=== PATIENT | male | born 1965 | race Caucasian/White ===

== ENCOUNTER 2018-04-28 15:12 | Emergency (ER) | payer MEDICAID ==
[~2018-04-28] VITALS: Ht 175.3 cm; Wt 81.8 kg
[~2018-04-28 15:12] MED LIST: CLOT15CR9 TOP; HYDR-4383 PO; IBUP-1986 PO
[2018-04-28 15:27] VITALS: BP 115/73
[2018-04-28] MEDS ORDERED: DOXY100C43 PO (16:01)
== END 2018-04-28 16:15 | disposition home or self-care (01) ==
LOC: ER 15:12
DX: R05 Cough (principal); F17.200 Nicotine dependence, unspecified, uncomplicated; Z56.0 Unemployment, unspecified
CPT/HCPCS: 71046; 99283

== ENCOUNTER 2019-04-01 00:36 | Emergency (ER) | payer MEDICAID ==
[~2019-04-01] VITALS: Ht 175.3 cm; Wt 79.5 kg
[2019-04-01 01:14] LABS: CLARITY,URINE CLOUDY (Clear); GLUCOSE, URINE NEGATIVE (Neg); KETONES,URINE NEGATIVE (Neg); LEUKOCYTE ESTERASE ,URINE LARGE (Neg); NITRITES, URINE NEGATIVE (Neg); OCCULT BLOOD,URINE MODERATE (Neg); PROTEIN,URINE 30 mg/dl (Neg)
--- NOTE | 2019-04-01 01:19 | NUR ---
Post void bladder scan 158 cc. Pt voided 50 cc prior.
[2019-04-01 01:21] LABS: COLOR,URINE DARK YELLOW (Yellow); UA COLLECTION TYPE CLN CATCH MIDSTREAM
[2019-04-01 01:24] LABS: BACTERIA,URINE 1+ /HPF (Neg); MUCUS STRANDS MANY /LPF (Neg); SQUAMOUS EPITHELIAL CELL,UR FEW /LPF (FEW); WBC,URINE TNTC /HPF (0-4)
[2019-04-01] MEDS ORDERED: CEPH-572 PO (01:33)
[2019-04-01] MEDS ORDERED: cephalexin 250mg capsule PO ONE (01:35)
[2019-04-01 02:10] VITALS: BP 142/86
[2019-04-02] MEDS ORDERED: PHEN-716 PO (16:17)
--- NOTE | 2019-04-04 09:35 | NUR ---
called and left a message that we need to change his antibiotic. it needs to be changed from keflex, to macrobid. need a pharmacy to to call in medications.
--- NOTE | 2019-04-04 09:42 | NUR ---
pt. called back. i let him know that he had MRSA in his urine and the keflex we sent him home on is not going to work for him. pt. still having symtoms. wants me to call in new antibiotic at [facility] [address]
--- NOTE | 2019-04-04 10:02 | NUR ---
called rx into [facility] [address] talked to koby the pharmacist for macrobid 100mg po bid x 7 days
== END 2019-04-01 02:12 | disposition home or self-care (01) ==
LOC: ER 00:37
DX: N40.1 Benign prostatic hyperplasia with lower urinary tract symptoms (principal); F10.99 Alcohol use, unspecified with unspecified alcohol-induced disorder; Z60.2 Problems related to living alone; Z56.0 Unemployment, unspecified; Z79.899 Other long term (current) drug therapy; Y90.9 Presence of alcohol in blood, level not specified
CPT/HCPCS: 81001; 87077; 87088; 87186; 99283; 99284

== ENCOUNTER 2019-04-02 14:35 | Emergency (ER) | payer MEDICAID ==
[~2019-04-02] VITALS: Ht 175.3 cm; Wt 76.9 kg
[~2019-04-02 14:35] MED LIST changes: +CEPH-572 PO
[2019-04-02 14:39] VITALS: BP 147/69
[2019-04-02 16:03] LABS: CLARITY,URINE TURBID (Clear); COLOR,URINE YELLOW (Yellow); GLUCOSE, URINE NEGATIVE (Neg); KETONES,URINE NEGATIVE (Neg); LEUKOCYTE ESTERASE ,URINE LARGE (Neg); NITRITES, URINE NEGATIVE (Neg); OCCULT BLOOD,URINE LARGE (Neg); PROTEIN,URINE 100 mg/dl (Neg)
[2019-04-02 16:04] LABS: UA COLLECTION TYPE VOIDED
[2019-04-02] MEDS ORDERED: CefTRIAXone 1000mg IM Kit (w/lidocaine diluent) IM STA (16:12)
[2019-04-02] MEDS ORDERED: phenazopyridine 100mg tablet PO STA (16:14)
[2019-04-02 16:17] LABS: HYALINE CASTS 0-3 /LPF (NEGATIVE); MUCUS STRANDS MANY /LPF (Neg); TRANSITIONAL EPI CELLS,URINE FEW /HPF
[2019-04-02] MEDS ORDERED: PHEN-716 PO (16:17)
[2019-04-02 16:18] LABS: WBC CLUMPS,URINE FEW /HPF (NEGATIVE); WBC,URINE TNTC /HPF (0-4)
[2019-04-02 16:19] LABS: BACTERIA,URINE FEW /HPF (Neg); SQUAMOUS EPITHELIAL CELL,UR FEW /LPF (FEW)
[2019-04-02] MEDS ORDERED: ibuprofen tablet 400 MG TABLET PO STA (16:31)
[2019-04-02] MEDS ORDERED: ibuprofen 200mg tablet PO STA (16:34)
== END 2019-04-02 17:08 | disposition home or self-care (01) ==
LOC: ER 14:36
DX: N39.0 Urinary tract infection, site not specified (principal); F10.99 Alcohol use, unspecified with unspecified alcohol-induced disorder; Z60.2 Problems related to living alone; Z56.0 Unemployment, unspecified; Y90.9 Presence of alcohol in blood, level not specified; Z79.899 Other long term (current) drug therapy
CPT/HCPCS: 81001; 87077; 87088; 87186; 96372; 99284; J0696

== ENCOUNTER 2019-04-06 00:47 | Emergency (ER) | payer MEDICAID ==
[~2019-04-06] VITALS: Ht 175.3 cm; Wt 79.5 kg
[~2019-04-06 00:47] MED LIST changes: +PHEN-716 PO
[2019-04-06] MEDS ORDERED: sulfamethoxazole/trimethoprim DS (800/160mg) tablet PO ONE (01:00)
[2019-04-06 01:39] VITALS: BP 136/78
[2019-04-06] MEDS ORDERED: SULF1TAB49 PO (02:03)
[2019-04-06 02:08] LABS: CLARITY,URINE CLOUDY (Clear); COLOR,URINE YELLOW (Yellow); GLUCOSE, URINE NEGATIVE (Neg); KETONES,URINE NEGATIVE (Neg); LEUKOCYTE ESTERASE ,URINE LARGE (Neg); OCCULT BLOOD,URINE LARGE (Neg); PROTEIN,URINE 100 mg/dl (Neg)
[2019-04-06 02:13] LABS: NITRITES, URINE NEGATIVE (Neg); UA COLLECTION TYPE CLN CATCH MIDSTREAM
[2019-04-06 02:14] LABS: BACTERIA,URINE FEW /HPF (Neg); SQUAMOUS EPITHELIAL CELL,UR FEW /LPF (FEW); WBC CLUMPS,URINE FEW /HPF (NEGATIVE); WBC,URINE TNTC /HPF (0-4)
== END 2019-04-06 02:30 | disposition home or self-care (01) ==
LOC: ER 00:48
DX: N39.0 Urinary tract infection, site not specified (principal); F12.90 Cannabis use, unspecified, uncomplicated; F15.90 Other stimulant use, unspecified, uncomplicated; F10.99 Alcohol use, unspecified with unspecified alcohol-induced disorder; Z60.2 Problems related to living alone; Z56.0 Unemployment, unspecified; Z79.899 Other long term (current) drug therapy; Y90.9 Presence of alcohol in blood, level not specified
CPT/HCPCS: 81001; 87077; 87088; 87186; 99283

== ENCOUNTER 2020-01-05 11:11 | Emergency (ER) | payer MEDICAID ==
[~2020-01-05] VITALS: Ht 175.3 cm; Wt 75.5 kg
[~2020-01-05 11:11] MED LIST changes: -CEPH-572 PO
[2020-01-05 11:43] VITALS: BP 133/73
[2020-01-05] MEDS ORDERED: LACT1CAP65 PO (12:49)
[2020-01-05] MEDS ORDERED: SULF1TAB49 PO (12:49)
[2020-01-05] MEDS ORDERED: CEPH500C5 PO (12:49)
== END 2020-01-05 13:47 | disposition home or self-care (01) ==
LOC: ER 11:12
DX: L03.011 Cellulitis of right finger (principal); F17.210 Nicotine dependence, cigarettes, uncomplicated; F12.10 Cannabis abuse, uncomplicated; F15.10 Other stimulant abuse, uncomplicated; Z56.0 Unemployment, unspecified; Z79.899 Other long term (current) drug therapy
CPT/HCPCS: 99283

== ENCOUNTER 2020-01-07 17:50 | Inpatient (IN) | payer MEDICAID ==
[~2020-01-07] VITALS: Ht 175.3 cm; Wt 74.0 kg
[~2020-01-07 17:50] MED LIST changes: +CEPH500C5 PO; +LACT1CAP65 PO; +SULF1TAB49 PO
[2020-01-07] MEDS ORDERED: vancomycin/NS 1 GM ADD-VANTAGE 250 ML IV ONE (19:20)
[2020-01-07] MEDS ORDERED: piperacillin/tazo 3.375gm/50ml 50 ML IV ONE (19:20)
[2020-01-07] MEDS ORDERED: normal saline 1000ML IV soln IV ONE (19:20)
[2020-01-07] MEDS ORDERED: ondansetron/PF 4mg/2ml inj IV ONE (19:25)
[2020-01-07] MEDS ORDERED: LIDOcaine/PRILOcaine 5gm cream TP ONE (19:35)
[2020-01-07 19:56] LABS: BASOPHILS # (AUTO) 0.2 X10'3 (0-0.2); BASOPHILS % (AUTO) 1.4 % (0-1); EOSINOPHILS # (AUTO) 0.2 X10'3 (0-0.9); EOSINOPHILS % (AUTO) 1.7 % (0-6); HEMOGLOBIN 15.4 g/dl (14.0-17.9); LYMPHOCYTES # (AUTO) 2.9 X10'3 (1.1-4.8); LYMPHOCYTES % (AUTO) 25.2 % (21-51); MEAN CORPUSCULAR HEMOGLOBIN 29.2 PG (27.0-31.0); MEAN CORPUSCULAR HGB CONC 33.4 g/dL (33.0-36.5); MEAN CORPUSCULAR VOLUME 87.3 FL (78-98); MEAN PLATELET VOLUME 7.4 FL (7.4-10.4); MONOCYTES # (AUTO) 1.1 X10'3 (0-0.9); MONOCYTES % (AUTO) 9.1 % (2-12); NEUTROPHILS # (AUTO) 7.3 X10'3 (1.8-7.7); NEUTROPHILS % (AUTO) 62.6 % (42-75); PLATELET COUNT 387 X10'3 (140-440); RED BLOOD COUNT 5.26 X10'6 (4.70-6.10); RED CELL DISTRIBUTION WIDTH 13.2 % (11.5-14.5); WHITE BLOOD COUNT 11.6 X10'3 (4.5-11.0)
[2020-01-07 20:12] LABS: ALANINE AMINOTRANSFERASE 24 U/L (12-78); ALBUMIN 3.3 G/DL (3.4-5.0); ALBUMIN/GLOBULIN RATIO 0.6 (1.1-1.5); ALKALINE PHOSPHATASE 93 IU/L (46-116); ANION GAP 5 (8-16); ASPARTATE AMINO TRANSFERASE 14 U/L (10-37); BILIRUBIN,TOTAL 0.4 MG/DL (0.1-1.0); BLOOD UREA NITROGEN 13 MG/DL (7-18); CALCIUM 9.6 MG/DL (8.5-10.1); CHLORIDE 100 MMOL/L (99-107); GLUCOSE 92 MG/DL (70-104); MAGNESIUM 2.2 MG/DL (1.5-2.4); POTASSIUM 4.2 MMOL/L (3.5-5.1); SODIUM 135 MMOL/L (135-145); TOTAL CARBON DIOXIDE 30.3 MMOL/L (24-32); TOTAL PROTEIN 8.5 G/DL (6.4-8.2); eGFR 57 ML/MIN
--- NOTE | 2020-01-07 21:23 | NUR ---
pt amb with steady gait to room 6, 2nd liter NS infusing w/o, pt amb to restroom
--- NOTE | 2020-01-07 21:43 | NUR ---
PT GIVEN SANDWICH, APPLESAUCE, AND JUICE UPON REQUEST
[2020-01-07] MEDS ORDERED: NO HOME MEDS (21:46)
[2020-01-07 21:48] LABS: CLARITY,URINE CLEAR (Clear); COLOR,URINE YELLOW (Yellow); GLUCOSE, URINE NEGATIVE (Neg); KETONES,URINE NEGATIVE (Neg); LEUKOCYTE ESTERASE ,URINE NEGATIVE (Neg); NITRITES, URINE NEGATIVE (Neg); OCCULT BLOOD,URINE TRACE-INTACT (Neg); PROTEIN,URINE NEGATIVE (Neg); UROBILINOGEN,URINE 0.2 E.U/dL (0.2-1.0)
[2020-01-07] MEDS ORDERED: magnesium hydroxide 30ml (MOM) UD suspension PO PRN (21:50)
[2020-01-07] MEDS ORDERED: morphine 2 MG/ML inj. syringe IV PRN ×2 (21:50)
[2020-01-07] MEDS ORDERED: ondansetron/PF 4mg/2ml inj IV PRN (21:50)
[2020-01-07] MEDS ORDERED: mag hydrox/Alum hydrox/simeth 30ml oral suspension PO PRN (21:50)
[2020-01-07] MEDS ORDERED: acetaminophen 325mg tablet PO PRN (21:50)
[2020-01-07] MEDS: normal saline 1000ml 1,000 ML IV SCH (21:50)
[2020-01-07] MEDS ORDERED: potassium CL 10mEq/100ml bag 100 ML IV PRN ×2 (21:50)
[2020-01-07] MEDS ORDERED: HYDROcodone/acetaminophen 5mg/325mg tablet PO PRN (21:50)
[2020-01-07] MEDS ORDERED: potassium Cl 20 mEq SR tablet PO PRN ×2 (21:50)
[2020-01-07] MEDS ORDERED: HYDROcodone/acetaminophen 10/325mg tab PO PRN (21:50)
[2020-01-07 21:51] LABS: UA COLLECTION TYPE CLN CATCH MIDSTREAM
[2020-01-07 21:58] LABS: SQUAMOUS EPITHELIAL CELL,UR FEW /LPF (FEW)
[2020-01-07 21:59] LABS: BACTERIA,URINE FEW /HPF (Neg); MUCUS STRANDS MODERATE /LPF (Neg); RBC,URINE 0-2 /HPF (0-2); WBC,URINE 0-4 /HPF (0-4)
[2020-01-08] MEDS: piperacillin/tazo 3.375gm/50ml 50 ML IV SCH ×2 (00:11→11:19)
[2020-01-08 06:06] LABS: BASOPHILS # (AUTO) 0.1 X10'3 (0-0.2); BASOPHILS % (AUTO) 0.7 % (0-1); EOSINOPHILS # (AUTO) 0.2 X10'3 (0-0.9); EOSINOPHILS % (AUTO) 1.9 % (0-6); HEMATOCRIT 40.9 % (42.0-52.0); LYMPHOCYTES # (AUTO) 2.2 X10'3 (1.1-4.8); LYMPHOCYTES % (AUTO) 21.9 % (21-51); MEAN CORPUSCULAR HEMOGLOBIN 30.1 PG (27.0-31.0); MEAN CORPUSCULAR HGB CONC 34.3 g/dL (33.0-36.5); MEAN CORPUSCULAR VOLUME 87.6 FL (78-98); MEAN PLATELET VOLUME 7.5 FL (7.4-10.4); MONOCYTES # (AUTO) 0.7 X10'3 (0-0.9); MONOCYTES % (AUTO) 7.3 % (2-12); NEUTROPHILS # (AUTO) 6.9 X10'3 (1.8-7.7); NEUTROPHILS % (AUTO) 68.2 % (42-75); PLATELET COUNT 319 X10'3 (140-440); RED BLOOD COUNT 4.67 X10'6 (4.70-6.10); RED CELL DISTRIBUTION WIDTH 13.4 % (11.5-14.5); WHITE BLOOD COUNT 10.1 X10'3 (4.5-11.0)
[2020-01-08 06:42] LABS: ALANINE AMINOTRANSFERASE 20 U/L (12-78); ALBUMIN 2.6 G/DL (3.4-5.0); ALBUMIN/GLOBULIN RATIO 0.6 (1.1-1.5); ALKALINE PHOSPHATASE 75 IU/L (46-116); ANION GAP 9 (8-16); ASPARTATE AMINO TRANSFERASE 10 U/L (10-37); BILIRUBIN,TOTAL 0.5 MG/DL (0.1-1.0); BLOOD UREA NITROGEN 12 MG/DL (7-18); BUN/CREATININE RATIO 9.7 (5.4-32.0); CALCIUM 8.7 MG/DL (8.5-10.1); CHLORIDE 105 MMOL/L (99-107); CREATININE 1.24 MG/DL (0.60-1.10); GLUCOSE 93 MG/DL (70-104); POTASSIUM 4.1 MMOL/L (3.5-5.1); SODIUM 141 MMOL/L (135-145); TOTAL PROTEIN 6.8 G/DL (6.4-8.2); eGFR 60 ML/MIN
--- NOTE | 2020-01-08 06:59 | NUR ---
Patient in room ED 6. I have received report from Laurel and had the opportunity to ask questions and assume patient care.
[2020-01-08 07:05] VITALS: BP 118/60
[2020-01-08] MEDS: normal saline 1000ml 1,000 ML IV SCH (07:27)
[2020-01-08] MEDS ORDERED: K and/or MAG REPLACEMENT MC SCH (08:00)
[2020-01-08] MEDS ORDERED: vancomycin/NS 1 GM ADD-VANTAGE 250 ML IV SCH (08:00)
[2020-01-08 10:00] VITALS: BP 115/58
--- NOTE | 2020-01-08 15:17 | NUR ---
Charge nurse paged MD after pt requested to leave. Pt stated to charge nurse he was "feeling better" and wished to leave. Pt advised it was AMA. When entered room, pt was not there but IV was out, cannula was intact on pt's bed Pt had dressed himself and left on his own accord.
--- NOTE | 2020-01-08 15:31 | NUR ---
Spoke to , advised of pt's departure.
[2020-01-09] MEDS ORDERED: VANCOMYCIN LEVEL IV ONE (07:30)
== END 2020-01-08 15:10 | disposition left against medical advice (07) | DRG 383 ==
LOC: ER 17:51 → ED HOLD 21:49 → ORTHO 4S 01-08 07:09
PROVIDERS: ADMIT Internal Medicine; ATTEND Family Medicine
DX: L03.011 Cellulitis of right finger (principal); L02.511 Cutaneous abscess of right hand; F17.210 Nicotine dependence, cigarettes, uncomplicated; F12.90 Cannabis use, unspecified, uncomplicated; Z53.29 Procedure and treatment not carried out because of patient's decision for other reasons
CPT/HCPCS: 36415; 71045; 73120; 80053; 81001; 83605; 83735; 84145; 85025; 87040; 87070; 87077; 87081; 87186; 93005; 96365; 99285; G0378; J2543; J3370; J7030

== ENCOUNTER 2020-09-06 22:21 | Emergency (ER) | payer MEDICAID ==
[~2020-09-06] VITALS: Ht 175.3 cm; Wt 72.7 kg
[~2020-09-06 22:21] MED LIST changes: -CEPH500C5 PO; -CLOT15CR9 TOP; -HYDR-4383 PO; -IBUP-1986 PO; -LACT1CAP65 PO; +NO HOME MEDS; -PHEN-716 PO; -SULF1TAB49 PO
[2020-09-06 22:30] VITALS: BP 151/120
[2020-09-07] MEDS ORDERED: SULF1TAB49 PO (01:10)
[2020-09-07] MEDS ORDERED: sulfamethoxazole/trimethoprim DS (800/160mg) tablet PO ONE (01:10)
[2020-09-07] MEDS ORDERED: ondansetron 4mg rapidly disintigrating tab PO ONE (01:10)
== END 2020-09-07 01:20 | disposition home or self-care (01) ==
LOC: ER 22:21
DX: S80.811A Abrasion, right lower leg, initial encounter (principal); L03.115 Cellulitis of right lower limb; F12.90 Cannabis use, unspecified, uncomplicated; F15.90 Other stimulant use, unspecified, uncomplicated; Z72.89 Other problems related to lifestyle; Z60.2 Problems related to living alone; Z56.0 Unemployment, unspecified; X58.XXXA Exposure to other specified factors, initial encounter; Y93.89 Activity, other specified; Y92.89 Other specified places as the place of occurrence of the external cause; Y99.8 Other external cause status
CPT/HCPCS: 99283

== ENCOUNTER 2020-10-13 08:34 | Emergency (ER) | payer MEDICAID ==
[~2020-10-13] VITALS: Ht 175.3 cm; Wt 74.3 kg
[2020-10-13 08:42] VITALS: BP 131/76
[2020-10-13] MEDS ORDERED: CEPH250T PO (09:32)
[2020-10-14] MEDS ORDERED: IBUP-1986 PO (15:40)
== END 2020-10-13 09:40 | disposition home or self-care (01) ==
LOC: ER 08:34
DX: L08.9 Local infection of the skin and subcutaneous tissue, unspecified (principal); F15.90 Other stimulant use, unspecified, uncomplicated; F12.90 Cannabis use, unspecified, uncomplicated; Z60.2 Problems related to living alone; Z56.0 Unemployment, unspecified; Z79.2 Long term (current) use of antibiotics; Z72.89 Other problems related to lifestyle
CPT/HCPCS: 99283

== ENCOUNTER 2020-10-19 09:15 | Day surgery (SDC) | payer MEDICAID ==
[2020-10-14 16:14] LABS: BASOPHILS # (AUTO) 0.1 X10'3 (0-0.2); EOSINOPHILS # (AUTO) 0.3 X10'3 (0-0.9); EOSINOPHILS % (AUTO) 2.2 % (0-6); MEAN CORPUSCULAR HEMOGLOBIN 29.6 PG (27.0-31.0); MEAN CORPUSCULAR HGB CONC 33.6 g/dL (33.0-36.5); MEAN CORPUSCULAR VOLUME 87.9 FL (78-98); MEAN PLATELET VOLUME 7.9 FL (7.4-10.4); MONOCYTES # (AUTO) 0.9 X10'3 (0-0.9); MONOCYTES % (AUTO) 7.2 % (2-12); NEUTROPHILS # (AUTO) 8.3 X10'3 (1.8-7.7); NEUTROPHILS % (AUTO) 65.6 % (42-75); PRE OP HEMATOCRIT 41.6 % (42.0-52.0); PRE OP PLATELET COUNT 289 X10'3 (140-440); RED BLOOD COUNT 4.73 X10'6 (4.70-6.10); RED CELL DISTRIBUTION WIDTH 13.4 % (11.5-14.5)
[2020-10-14 16:23] LABS: ALBUMIN 3.5 G/DL (3.4-5.0); ALBUMIN/GLOBULIN RATIO 0.9 (1.1-1.5); ALKALINE PHOSPHATASE 72 IU/L (46-116); BLOOD UREA NITROGEN 8 MG/DL (7-18); BUN/CREATININE RATIO 7.9 (5.4-32.0); CALCIUM 8.3 MG/DL (8.5-10.1); CHLORIDE 104 MMOL/L (99-107); CREATININE 1.01 MG/DL (0.60-1.10); PRE OP ALT 25 U/L (30-65); PRE OP ANION GAP 8 (8-16); PRE OP AST 12 U/L (10-37); PRE OP BILIRUB, TOTAL 0.5 MG/DL (0.0-1.0); PRE OP GLUCOSE 93 MG/DL (70-104); PRE OP POTASSIUM 4.1 MMOL/L (3.4-5.1); PRE OP SODIUM 141 MMOL/L (135-145); TOTAL CARBON DIOXIDE 29.1 MMOL/L (24-32); TOTAL PROTEIN 7.5 G/DL (6.4-8.2); eGFR 76 ML/MIN
[~2020-10-19] VITALS: Ht 175.3 cm; Wt 73.9 kg
[2020-10-19] VITALS (16 sets, daily range): BP systolic 119–144; BP diastolic 77–88
[~2020-10-19 09:15] MED LIST changes: +BUPIVAcaine/PF 2.5mg/ml (0.25%) 10ml vial ONE; +IBUP-1986 PO; +LIDOcaine 1% 30ml preserv. free vial ONE; -NO HOME MEDS; +cefazolin/dext.iso 2gm/100ml IV ONE; +famotidine 20mg tablet PO ONE; +ringers solution, lacted 1,000 ML IV SCH
[2020-10-19] MEDS ORDERED: labetalol 20mg/4ml (5mg/ml) syringe IV PRN (09:55)
[2020-10-19] MEDS ORDERED: hydrALAZINE 20mg/ml inj. IV PRN (09:55)
[2020-10-19] MEDS ORDERED: ondansetron/PF 4mg/2ml inj IV PRN (09:55)
[2020-10-19] MEDS ORDERED: morphine 4 MG/ML inj SYRINge IV PRN (09:55)
[2020-10-19] MEDS ORDERED: ringers solution, lacted 1,000 ML IV SCH (09:55)
[2020-10-19] MEDS ORDERED: fentaNYL/PF 50MCG/1 ML 2ML syringe IV PRN ×2 (09:55)
[2020-10-19] MEDS ORDERED: morphine 2 MG/ML inj. syringe IV PRN (09:55)
[2020-10-19] MEDS ORDERED: neostigmine methylsulfate 1 MG/ML 10ml vial ONE (11:50)
[2020-10-19] MEDS ORDERED: sevoflurane 250ml liquid IH ONE (11:50)
[2020-10-19] MEDS ORDERED: glycopyrrolate 0.2mg/ml inj ONE (11:50)
[2020-10-19] MEDS ORDERED: fentaNYL/PF 50MCG/1 ML 2ML syringe ONE (11:56)
[2020-10-19] MEDS ORDERED: midazolam 1 mg/ML 2ml injection ONE (11:56)
[2020-10-19] MEDS ORDERED: ondansetron/PF 4mg/2ml inj ONE (12:01)
[2020-10-19] MEDS ORDERED: propofol inj 20 ML IV ONE (12:01)
[2020-10-19] MEDS ORDERED: LIDOcaine 2% (20mg/ml) 5ml vial ONE (12:01)
[2020-10-19] MEDS ORDERED: rocuronium 10mg/ml inj IV ONE (12:01)
[2020-10-19] MEDS ORDERED: dexamethasone sod phosphate 4mg/ml inj. ONE (12:03)
--- NOTE | 2020-10-19 13:46 | NUR ---
Received from OR via NIC IN STABLE CONDITION, accompanied by Anesthesiologist and DEBEADER report given by DEBEADER AND Anesthesiolgist. Addendum: 10/19/20 at 1358 by Arminda Bautista RN Amended: Links added.
[2020-10-19] MEDS ORDERED: HYDROcodone/acetaminophen 5mg/325mg tablet PO PRN ×2 (14:05)
--- NOTE | 2020-10-19 16:16 | NUR ---
PATIENT DISCHARGED FROM PACU AFTER WRITTEN AND VERBAL DISCHARGE INSTRUCTIONS GIVEN. PATIENT GAVE VERBAL UNDERSTANDING OF INSTRUCTIONS GIVEN. PATIENT LEFT FACILITY VIA WHEELCHAIR WITH RN. Addendum: 10/19/20 at 1623 by Arminda Bautista RN Amended: Links added.
== END 2020-10-19 16:16 | disposition home or self-care (01) ==
LOC: PAS 09:15
PROVIDERS: ATTEND Surgery
DX: K40.30 Unilateral inguinal hernia, with obstruction, without gangrene, not specified as recurrent (principal); Z20.822 Contact with and (suspected) exposure to COVID-19; F17.210 Nicotine dependence, cigarettes, uncomplicated; Z98.890 Other specified postprocedural states; Z86.14 Personal history of Methicillin resistant Staphylococcus aureus infection; Z79.899 Other long term (current) drug therapy; Z80.8 Family history of malignant neoplasm of other organs or systems; Z80.0 Family history of malignant neoplasm of digestive organs
CPT/HCPCS: 36415; 49650; 80053; 82948; 85025; 93005; C1781; J1100; J2001; J2250; J2405; J2704; J2710; J3010; J3490; S2900; U0003; U0005; Z7506; Z7508; Z7512; A4215; A4618; J7120

== ENCOUNTER 2021-04-16 11:56 | Emergency (ER) | payer MEDICAID ==
[~2021-04-16] VITALS: Ht 175.3 cm; Wt 75.0 kg
[~2021-04-16 11:56] MED LIST changes: -BUPIVAcaine/PF 2.5mg/ml (0.25%) 10ml vial ONE; -LIDOcaine 1% 30ml preserv. free vial ONE; -cefazolin/dext.iso 2gm/100ml IV ONE; -famotidine 20mg tablet PO ONE; -ringers solution, lacted 1,000 ML IV SCH
[2021-04-16 12:34] VITALS: BP 132/86
[2021-04-16] MEDS ORDERED: DOXY100C76 PO ×2 (14:52→16:32)
[2021-04-16] MEDS ORDERED: ALBU8HFA PO (14:52)
[2021-04-16] MEDS ORDERED: ALBU18HF2 INH (16:32)
== END 2021-04-16 15:07 | disposition home or self-care (01) ==
LOC: ER 11:56
DX: J06.9 Acute upper respiratory infection, unspecified (principal); Z20.822 Contact with and (suspected) exposure to COVID-19; L03.115 Cellulitis of right lower limb; F12.90 Cannabis use, unspecified, uncomplicated; F15.90 Other stimulant use, unspecified, uncomplicated; Z60.2 Problems related to living alone; Z56.0 Unemployment, unspecified; Z72.89 Other problems related to lifestyle; Z79.899 Other long term (current) drug therapy
CPT/HCPCS: 71045; 87635; 99284; C9803

== ENCOUNTER 2021-05-17 15:37 | Emergency (ER) | payer MEDICAID ==
[~2021-05-17] VITALS: Ht 175.3 cm; Wt 72.7 kg
[~2021-05-17 15:37] MED LIST changes: +ALBU18HF2 INH
[2021-05-17 15:44] VITALS: BP 139/88
== END 2021-05-17 15:45 | disposition left against medical advice (07) ==
LOC: ER 15:37
DX: L03.115 Cellulitis of right lower limb (principal); R05.9 Cough, unspecified; F12.90 Cannabis use, unspecified, uncomplicated; F15.90 Other stimulant use, unspecified, uncomplicated; F17.210 Nicotine dependence, cigarettes, uncomplicated; Z72.89 Other problems related to lifestyle; Z56.0 Unemployment, unspecified; Z79.899 Other long term (current) drug therapy
CPT/HCPCS: 71045; 99283

== ENCOUNTER 2021-06-19 10:38 | Emergency (ER) | payer MEDICAID ==
[~2021-06-19] VITALS: Ht 175.3 cm; Wt 72.7 kg
[~2021-06-19 10:38] MED LIST changes: +LIDOcaine 1% W/epiNEPHrine 1:100,000 20ml vial ONE
[2021-06-19 10:55] VITALS: BP 147/81
[2021-06-19] MEDS ORDERED: CEPH-585 PO (13:50)
== END 2021-06-19 15:21 | disposition home or self-care (01) ==
LOC: ER 10:39
DX: S60.552A Superficial foreign body of left hand, initial encounter (principal); F12.90 Cannabis use, unspecified, uncomplicated; F15.90 Other stimulant use, unspecified, uncomplicated; Z60.2 Problems related to living alone; Z56.0 Unemployment, unspecified; Z72.89 Other problems related to lifestyle; Z79.2 Long term (current) use of antibiotics; Z79.899 Other long term (current) drug therapy; W45.8XXA Other foreign body or object entering through skin, initial encounter; Y93.89 Activity, other specified; Y92.89 Other specified places as the place of occurrence of the external cause; Y99.8 Other external cause status
CPT/HCPCS: 10120; 73120; 73130; 99285; J3490

== ENCOUNTER 2024-08-08 19:38 | Emergency (ER) | payer MEDICAID ==
[~2024-08-08] VITALS: Ht 180.3 cm; Wt 81.8 kg
[~2024-08-08 19:38] MED LIST changes: -LIDOcaine 1% W/epiNEPHrine 1:100,000 20ml vial ONE
[2024-08-08 19:53] VITALS: BP 151/92; PULSE 86; RESP 20; TEMP 98.1; O2SAT 97
[2024-08-08] MEDS ORDERED: NALO4SPR BOTHNARES (19:59)
--- NOTE | 2024-08-08 20:00 | Physician Documentation ---
History of Present Illness ~ Stated Complaint: OD Time Seen by MD: 19:56 Primary Medical Doctor: none HPI This is a 59-year-old gentleman with a history of self-reported polysubstance abuse, comes in for fentanyl overdose that was treated with the Narcan by his friend. Evidently the gentleman was compelled to recreationally enjoy methamphetamines and fentanyl, and lost consciousness and became bradypneic. Recovered remarkably with the Narcan back to baseline. He took methadone to counteract the effects of fentanyl at home prior to arrival. At the time of my examination he I feel like shit. The particular palliating or aggravating factors. Has not ever done this in the past. Denies any chest pain, difficulty breathing, abdominal pain. Medication Reconciliation Allergies: Coded Allergies: No Known Allergies (Unverified , 08/08/24) Scheduled Albuterol Sulfate (Ventolin Hfa), 2 PUFFS INH Q4HPRN Naloxone HCl (Narcan), 1 SPRAYS BOTHNARES ONCE Scheduled PRN Ibuprofen (Ibuprofen), 1,000 MG PO Q8H PRN for pain, (Reported) Past Medical History Past Medical History: *DERMATOLOGY*, Cellulitis Past Surgical History: noncontributory Alcohol Use: Occasionally Drug Use: marijuana, methamphetamine Lives with: Alone Lives In: Home Occupation: unemployed Review of Systems ROS 10 point review of systems was performed and unless noted above in HPI is negative for acute process/complaint. Physical Exam Physical Exam Physical examination: GENERAL: Awake, alert, oriented, GCS 15, no apparent distress, non-toxic appearing, answers questions, follows commands appropriately. [facility] Atraumatic, normocephalic, pupils equal, extraocular muscles intact Active gross movements, sclerae anicteric, mucus membranes moist, no stridor. NECK: Midline, no JVD CARDIOVASCULAR: Good skin perfusion without evidence of pallor, mottling. PULMONARY: Nonlabored, symmetric chest rise, no audible wheezing, no accessory muscle use, no respiratory distress, speaking in full sentences. GASTROINTESTINAL: Not distended. NEUROLOGIC: Lucid with normal mental status. Normal facial symmetry. Moves all extremities symmetrically and with purpose. No truncal ataxia. Speech is fluid without evidence of dysarthria or aphasia, no focal deficits appreciated. EXTREMITIES: Acute deformities Skin: warm, dry PSYCHIATRIC: Normal affect, normal insight, normal concentration. Focused exam: [] It is important to note that the gentleman arrived completely naked Progress Results/Orders Results/Orders Vital Signs 08/08/24 19:53 Temp 98.1 Pulse 86 Resp 20 B/P (MAP) 151/92 Pulse Ox 97 Medical Decision Making Findings Facility Status: ED Holds, RME process The plan was discussed with the patient, who demonstrates clear understanding of the plan and is in agreement with the plan unless otherwise noted in the chart. All questions have been answered, all concerns were addressed unless otherwise documented. I was available throughout their ED stay for frequent reassessment and questions. Differential Diagnoses (considered and possible or likely): [Accidental fentanyl overdose, loss of respiratory drive, clinically no evidence of hypoxic brain damage, polysubstance abuse including fentanyl abuse and methamphetamine abuse] ??Differential Diagnoses (considered and unlikely, not requiring evaluation currently): [] MDM Data Please see [facility] for the following: Independent Historians and external Records Review. Historian: [Patient] Independent Historians: ?[] Medication Management: [Reviewed medication list] Social History and determinants: [Reviewed] Please see the body of the note for the following: Any independent interpretations of ECG, imaging studies. All vitals signs/haemodynamics, ordered tests were independently reviewed and interpreted by myself. Nursing triage complaint and vitals reviewed, additional nursing notes were reviewed as available and I agree unless otherwise noted or documented in contradiction in the chart Vital Signs: Independently reviewed Labs: Independently interpreted Imaging: Independently interpreted Old Medical Records: Independently reviewed, see HPI for relevant summary and information Pulse Oximetry: [100%] interpreted as [normal on room air] by me Additionally notably showing: [Hemodynamically stable] Tests considered but not ordered include: [Hematologic workup and imaging has been considered but does not appear to be necessary given clinical nature of diagnosis] Social Determinants of Health Impact: Patient was evaluated in [facility], or [facility] [place] to healthcare due to below par ratio of patient to medical providers. [] Comorbid Conditions Impacting Present Evaluation and Care/Treatment: [Polysubstance abuse] Management Discussions with other Healthcare Providers: [None] Treatment and Disposition Medication Management (Given or considered): []. See EMR for details Consideration for Hospitalization/Escalation/Deescalation of Care: Admission for observation has been considered, [however the patient is able to tolerate p.o., their symptoms are controlled, they are able to rely on oral medications, and their chief complaint/diagnosis can be managed on outpatient basis.] ?ED Course:?[The gentleman has been observed and eventually eloped. Does not require recall. Narcan was prescribed] ?Shared decision making:?[] Code status:?FULL Please see the full Electronic Medical Record for full details of nursing documentation, medications list, other records of complete past medical history and conditions, vital signs, laboratory studies, and any radiologic study interpretations by radiologists. Portions of this note were completed using [employer] dictation software and as a result there may exist minor errors in spelling. I have reviewed elements of past family and social history and agree as included in note. Departure Disposition: 07 LEFT AWOL/ELOPED Impression: Primary Impression: Accidental fentanyl overdose Additional Impressions: Methamphetamine abuse Mild fentanyl abuse Condition: Improved Referrals: NO PRIMARY CARE PROVIDER (PCP) Prescriptions Naloxone HCl (Narcan) 4 Mg/Actuation Bland 1 SPRAYS BOTHNARES ONCE for 14 Days, #1 EA 0 Refills Prov: HAYDER SHARMA DO 08/08/24 Education Educated: Patient Educated regarding: diagnosis, treatment, prognosis, need for follow up Signature Scribe Signature: No scribe Attestation: This note accurately reflects clinical decisions, work performed by myself, DO EDITH Adame NICHOLAS M DO August 08, 2024 20:00
== END 2024-08-08 21:00 | disposition left against medical advice (07) ==
LOC: ER 19:39
DX: T40.411A Poisoning by fentanyl or fentanyl analogs, accidental (unintentional), initial encounter (principal); F15.10 Other stimulant abuse, uncomplicated; F12.90 Cannabis use, unspecified, uncomplicated; Z56.0 Unemployment, unspecified; Z60.2 Problems related to living alone; Z79.899 Other long term (current) drug therapy
CPT/HCPCS: 99283